=== PATIENT | male | born 1955 | race Caucasian/White ===

== ENCOUNTER → 2021-05-13 | Outpatient (CLI) | payer BC ==
[2021-05-13 17:34] LABS: African American GFR (CKD) >90 (>60 ml/min/1.73 sqM); Anion Gap 9 mmol/L; Blood Urea Nitrogen 18 mg/dL (9-20); Calcium 9.3 mg/dL (8.4-10.2); Carbon Dioxide 28 mmol/L (22-30); Chloride 98 mmol/L (98-107); Glucose 92 mg/dL (74-99); Non-African American GFR(CKD) >90 (>60 ml/min/1.73 sqM); Potassium 4.6 mmol/L (3.5-5.1); Sodium 135 mmol/L (137-145)
[2021-05-14] LABS: HCT 46.8 % (39.6-50.0); HGB 15.3 g/dL (13.0-17.0); MCH 30.7 pg (27.0-32.0); MCHC 32.7 g/dL (32.0-37.0); Mean Platelet Volume 11.1 fL (9.5-12.2); Platelet Count 250 X 10*3/uL (140-440); RBC 4.98 X 10*6/uL (4.40-5.60); RDW 11.9 % (11.5-14.5); WBC 7.74 X 10*3/uL (4.50-10.00)
== END | disposition home or self-care (01) ==
LOC: LABWHC1 15:49
PROVIDERS: ATTEND Internal Medicine Cardiovascular Disease
DX: R07.2 Precordial pain (principal); R00.2 Palpitations
CPT/HCPCS: 36415; 80048; 84443; 85027

== ENCOUNTER 2022-09-20 04:46 | Emergency (ER) | payer MEDICARE, BC ==
[2022-09-20] MEDS ORDERED: SODIUM CHLORIDE 0.9% 1,000 ML IV STA (05:14)
[2022-09-20] MEDS ORDERED: HYDROcodone/APAP 5-325MG 1 EACH TAB PO STA (05:14)
--- NOTE | 2022-09-20 05:19 | ED ---
General Adult HPI - General Source: patient Mode of arrival: ambulatory <Bladimir Senior - Last Filed: 09/20/22 08:04> <Misbah Harkins - Last Filed: 09/20/22 08:58> - General Chief complaint: Back Pain/Injury Stated complaint: upper back pain Time Seen by Provider: 09/20/22 04:59 - History of Present Illness Initial comments: Dictation was produced using [employer] dictation software. please excuse any grammatical, word or spelling errors. Chief Complaint: 67-year-old male presents with pleuritic upper back pain History of Present Illness: Patient 67-year-old male who has past medical history of 49 mm thoracic ascending aortic aneurysm resents to the ER for pleuritic back pain. States that 2 days ago symptoms began as left scapular pain. Started insidiously radiated into his bilateral soft tissues of the neck. Patient states he has next if Ms. worse with head rotation. Today his symptoms radiated to the right scapula. Symptoms are worse when he takes a deep breath. Patient denies any shortness of breath. No inciting event that may have triggered his pain. States that he has a sharp pain whenever he takes a deep breath. Denies any chest pain. No numbness time to the arms or legs. The ROS documented in this emergency department record has been reviewed and confirmed by me. Those systems with pertinent positive or negative responses have been documented in the HPI. All other systems are other negative and/or noncontributory. (Bladimir Senior) - Related Data Previous Rx's Medication Instructions Recorded Cyclobenzaprine [Flexeril] 10 mg PO BID PRN 7 Days #14 tab 09/20/22 Lidocaine 5% Patch [Lidoderm 5% 1 patch TOPICAL DAILY PRN 14 Days 09/20/22 Patch] #14 patch Allergies Allergy/AdvReac Type Severity Reaction Status Date / Time No Known Allergies Allergy Verified 09/20/22 04:57 Review of Systems ROS Other: All systems not noted in ROS Statement are negative. <Bladimir Senior - Last Filed: 09/20/22 08:04> ROS Other: All systems not noted in ROS Statement are negative. <Misbah Harkins - Last Filed: 09/20/22 08:58> ROS Statement: Those systems with pertinent positive or pertinent negative responses have been documented in the HPI. Past Medical History Additional Past Medical History / Comment(s): Ascending aortic anerysm 2011 Smoking Status: Never smoker Past Alcohol Use History: Rare Past Drug Use History: None Reported <Bladimir Senior - Last Filed: 09/20/22 08:04> General Exam <Bladimir Senior - Last Filed: 09/20/22 08:04> <Misbah Harkins - Last Filed: 09/20/22 08:58> - General Exam Comments Initial Comments: PHYSICAL EXAM: General Impression: Alert and oriented x3, not in acute distress HEENT: Normocephalic atraumatic, extra-ocular movements intact, pupils equal and reactive to light bilaterally, mucous membranes moist. Cardiovascular: Heart regular rate and rhythm Chest: Able to complete full sentences, no retractions, no tachypnea Abdomen: abdomen soft, non-tender, non-distended, no organomegaly Musculoskeletal: Pulses present and equal in all extremities, no peripheral edema Motor: no focal deficits noted Neurological: CN II-XII grossly intact, no focal motor or sensory deficits noted Skin: Intact with no visualized rashes Psych: Normal affect and mood (Bladimir Senior) General: Appears in no acute distress. HEAD: Normal with no signs of head trauma. EYES: EOMI. ENT: Hearing grossly intact. RESPIRATORY: No respiratory distress. C/V: Regular rate and rhythm. Radial pulses 2+ and intact bilaterally. ABD: Abdomen is nondistended. EXT: Mild tenderness to palpation along the right trapezius muscle. Worse with active and passive movement of the right arm. SKIN: No rashes or lesions observed on exposed skin. NEURO: Alert and oriented. (Misbah Harkins) Course Vital Signs 09/20/22 09/20/22 09/20/22 04:50 06:45 07:33 Temperature 98.4 F Pulse Rate 84 65 73 Respiratory 16 16 18 Rate Blood Pressure 185/67 144/73 149/71 O2 Sat by Pulse 100 96 97 Oximetry EKG Findings - EKG Comments: EKG Findings:: My EKG interpretation: Ventricular rate 68, normal sinus rhythm, WI interval 192, QRS 15, QTC 425. No WI prolongation, no QTC prolongation, no ST or T-wave changes noted. Overall, this EKG is unremarkable <Bladimir Senior - Last Filed: 09/20/22 08:04> Medical Decision Making - Lab Data Result diagrams: 09/20/22 05:30 09/20/22 05:30 <Bladimir Senior - Last Filed: 09/20/22 08:04> - Lab Data Result diagrams: 09/20/22 05:30 09/20/22 05:30 <Misbah Harkins - Last Filed: 09/20/22 08:58> - Medical Decision Making Was pt. sent in by a medical professional or institution (, PA, MONKEY TRAINER, urgent care, hospital, or detention...) When possible be specific @ -No Did you speak to anyone other than the patient for history (EMS, parent, family, police, friend...)? What history was obtained from this source @ -No Did you review nursing and triage notes (agree or disagree)? Why? @ -I reviewed and agree with nursing and triage notes Were old charts reviewed (outside hosp., previous admission, EMS record, old EKG, old radiological studies, urgent care reports/EKG's, detention records)? Report findings @ -No old charts were reviewed Differential Diagnosis (chest pain, altered mental status, abdominal pain women, abdominal pain men, vaginal bleeding, musculoskeletal, weakness, fever, dyspnea, syncope, headache, dizziness, GI bleed, back pain, seizure, CVA, palpatations, mental health)? @ -Differential Chest Pain: Stable Angina, Unstable Angina, STEMI, NSTEMI Aortic Dissection, Pneumothorax, Musculoskeletal, Esophageal Spasm GERD, Cholecystitis, Pancreatitis, Zoster, this is not meant to be an all-inclusive list. EKG interpreted by me (3pts min.). @ -None done X-rays interpreted by me (1pt min.). @ -Chest x-ray shows no acute processes. CT interpreted by me (1pt min.). @ -Stable thoracic aneurysm. No evidence for dissection or pulmonary embolism U/S interpreted by me (1pt. min.). @ -None done What testing was considered but not performed or refused? (CT, X-rays, U/S, labs)? Why? @ -None What meds were considered but not given or refused? Why? @ -None Did you discuss the management of the patient with other professionals (professionals i.e. , PA, MONKEY TRAINER, lab, RT, psych nurse, criminal justice social worker, pocket assembler, teacher, division officer weapons department, gearcase assembler)? Give summary @ -No Was smoking cessation discussed for >3mins.? @ -No Was critical care preformed (if so, how long)? @ -No Were there social determinants of health that impacted care today? How? (Homelessness, low income, unemployed, alcoholism, drug addiction, transportation, low edu. Level, literacy, decrease access to med. care, penitentiary, rehab)? @ -No Was there de-escalation of care discussed even if they declined (Discuss DNR or withdrawal of care, Hospice)? DNR status @ -No What co-morbidities impacted this encounter? (DM, HTN, Smoking, COPD, CAD, Cancer, CVA, ARF, Chemo, Hep., AIDS, mental health diagnosis, sleep apnea, morbid obesity)? @ -None Was patient admitted / discharged? Hospital course, mention meds given and route, prescriptions, significant lab abnormalities, going to OR and other pert inent info. @ -67-year-old male with history of descending thoracic aortic aneurysm presents emergency primary for mid scapular pleuritic pain. Symptomatology suspicious for musculoskeletal issue however he does have risk factors for more serious etiology. Laboratory evaluation obtained. CBC unremarkable. Metabolic panel is negative. Coag panel sent. D-dimer slightly elevated 0.86. Undiagnosed new problem with uncertain prognosis? @ -No Drug Therapy requiring intensive monitoring for toxicity (Heparin, Nitro, Ins ulin, Cardizem)? @ -No Were any procedures done? @ -No Diagnosis/symptom? Acute, or Chronic, or Acute on Chronic? Uncomplicated (without systemic symptoms) or Complicated (systemic symptoms)? @ -1. Pleuritic back pain Side effects of treatment? @ -No Exacerbation, Progression, or Severe Exacerbation? @ -No Poses a threat to life or bodily function? How? (Chest pain, [place], [place], pneumonia, PE, COPD, DKA, ARF, appy, cholecystitis, CVA, Diverticulitis, Homicidal, Suicidal, threat to staff... and all critical care pts) @ -yes Patient care signed out to Dr. Harkins at 8:00 AM (Bladimir Senior) Patient signed out to me pending results of CT imaging as well as troponin. Presents with what appears to be musculoskeletal type back pain. Hurts with movement of the right arm as well as right neck and torso. No numbness. No anterior chest pain. No other acute complaints at this time. Does have a history of an ascending thoracic aneurysm which is why presents for evaluation today. Pain is been ongoing for multiple days. Workup thus far was unremarkable. D-dimer was mildly elevated to 0.86. CT angiogram was ordered to evaluate the aneurysm as well as for PE. Troponin is undetectable. CTA is interpreted by me shows an ascending thoracic aneurysm of 5 cm, and per patient the most recent imaging he had done showed a stable thoracic aneurysm of 4.9 cm. It appears overall stable and unchanged. No evidence of dissection. On reevaluation, patient is feeling improved. We did discuss his workup. We agreed, me, patient as well as his that the patient is stable for discharge home and he will follow with Dr. Pillai this week. Strong suspicion this is mostly skeletal pain. We discussed that his aneurysm appears stable and he has no evidence of vomiting embolism at this time. Strict return precautions discussed. He was in agreement this plan. He'll be given a lidocaine patch as well as Flexeril as well as a starter pack for Tylenol 3. I will provide the patient with a prescription for Flexeril, lidocaine patch. I instructed the patient to follow up with their PCP in the next 1-3 days. I explained that the patient should return to the emergency department if they experience any worsening symptoms. Strict return precautions were discussed with the patient. The patient expressed understanding of these instructions. I answered all questions that the patient had. The patient was discharged home in good condition with their prescriptions and follow up information. (Misbah Harkins) - Lab Data Lab Results 09/20/22 09/20/22 09/20/22 Range/Units 05:30 05:30 05:30 WBC 10.4 (3.8-10.6) k/uL RBC 4.95 (4.30-5.90) m/uL Hgb 15.2 (13.0-17.5) gm/dL Hct 45.5 (39.0-53.0) % MCV 91.9 (80.0-100.0) fL MCH 30.6 (25.0-35.0) pg MCHC 33.3 (31.0-37.0) g/dL RDW 12.4 (11.5-15.5) % Plt Count 185 (150-450) k/uL MPV 9.1 Neutrophils % 80 % Lymphocytes % 13 % Monocytes % 5 % Eosinophils % 1 % Basophils % 0 % Neutrophils # 8.4 H (1.3-7.7) k/uL Lymphocytes # 1.4 (1.0-4.8) k/uL Monocytes # 0.5 (0-1.0) k/uL Eosinophils # 0.1 (0-0.7) k/uL Basophils # 0.0 (0-0.2) k/uL PT 10.1 (9.0-12.0) sec INR 0.9 (<1.2) APTT 22.5 (22.0-30.0) sec D-Dimer 0.86 H (<0.60) mg/L FEU Sodium 137 (137-145) mmol/L Potassium 4.3 (3.5-5.1) mmol/L Chloride 101 (98-107) mmol/L Carbon Dioxide 28 (22-30) mmol/L Anion Gap 8 mmol/L BUN 16 (9-20) mg/dL Creatinine 0.71 (0.66-1.25) mg/dL Est GFR (CKD-EPI)AfAm >90 (>60 ml/min/1.73 sqM) Est GFR (CKD-EPI)NonAf >90 (>60 ml/min/1.73 sqM) Glucose 112 H (74-99) mg/dL Calcium 8.8 (8.4-10.2) mg/dL Total Bilirubin 0.5 (0.2-1.3) mg/dL AST 28 (17-59) U/L ALT 23 (4-49) U/L Alkaline Phosphatase 66 (38-126) U/L Troponin I (0.000-0.034) ng/mL Total Protein 7.2 (6.3-8.2) g/dL Albumin 4.2 (3.5-5.0) g/dL 09/20/22 Range/Units 07:38 WBC (3.8-10.6) k/uL RBC (4.30-5.90) m/uL Hgb (13.0-17.5) gm/dL Hct (39.0-53.0) % MCV (80.0-100.0) fL MCH (25.0-35.0) pg MCHC (31.0-37.0) g/dL RDW (11.5-15.5) % Plt Count (150-450) k/uL MPV Neutrophils % % Lymphocytes % % Monocytes % % Eosinophils % % Basophils % % Neutrophils # (1.3-7.7) k/uL Lymphocytes # (1.0-4.8) k/uL Monocytes # (0-1.0) k/uL Eosinophils # (0-0.7) k/uL Basophils # (0-0.2) k/uL PT (9.0-12.0) sec INR (<1.2) APTT (22.0-30.0) sec D-Dimer (<0.60) mg/L FEU Sodium (137-145) mmol/L Potassium (3.5-5.1) mmol/L Chloride (98-107) mmol/L Carbon Dioxide (22-30) mmol/L Anion Gap mmol/L BUN (9-20) mg/dL Creatinine (0.66-1.25) mg/dL Est GFR (CKD-EPI)AfAm (>60 ml/min/1.73 sqM) Est GFR (CKD-EPI)NonAf (>60 ml/min/1.73 sqM) Glucose (74-99) mg/dL Calcium (8.4-10.2) mg/dL Total Bilirubin (0.2-1.3) mg/dL AST (17-59) U/L ALT (4-49) U/L Alkaline Phosphatase (38-126) U/L Troponin I <0.012 (0.000-0.034) ng/mL Total Protein (6.3-8.2) g/dL Albumin (3.5-5.0) g/dL Disposition <Bladimir Senior - Last Filed: 09/20/22 08:04> Is patient prescribed a controlled substance at d/c from ED?: No Time of Disposition: 08:40 <Misbah Harkins - Last Filed: 09/20/22 08:58> Clinical Impression: Musculoskeletal back pain Disposition: HOME SELF-CARE Condition: Good Instructions (If sedation given, give patient instructions): Back Pain (ED) Prescriptions: Cyclobenzaprine [Flexeril] 10 mg PO BID PRN 7 Days #14 tab PRN Reason: Pain Lidocaine 5% Patch [Lidoderm 5% Patch] 1 patch TOPICAL DAILY PRN 14 Days #14 patch PRN Reason: Pain Referrals: Mal Pillai DO [Primary Care Provider] - 1-2 days
--- NOTE | 2022-09-20 06:02 | XR ---
EXAMINATION TYPE: XR chest 2V DATE OF EXAM: 09/20/2022 COMPARISON: NONE HISTORY: Chest and pleuritic back pain. TECHNIQUE: Frontal and lateral views of the chest are obtained. FINDINGS: Overlying sternal wires are present. Low lung volumes are present. There is no suspicious focal air space opacity, pleural effusion, or pneumothorax seen. The cardiac silhouette size is with in normal limits. The osseous structures are intact. IMPRESSION: No acute cardiopulmonary process.
[2022-09-20 06:03] LABS: Basophils % (A) 0 %; Eosinophils # (A) 0.1 k/uL (0-0.7); Eosinophils % (A) 1 %; HCT 45.5 % (39.0-53.0); HGB 15.2 gm/dL (13.0-17.5); Lymphocytes # (A) 1.4 k/uL (1.0-4.8); Lymphocytes % (A) 13 %; MCH 30.6 pg (25.0-35.0); MCHC 33.3 g/dL (31.0-37.0); MCV 91.9 fL (80.0-100.0); Mean Platelet Volume 9.1; Monocytes # (A) 0.5 k/uL (0-1.0); Monocytes % (A) 5 %; Neutrophils # (A) 8.4 k/uL (1.3-7.7); Neutrophils % (A) 80 %; Platelet Count 185 k/uL (150-450); RBC 4.95 m/uL (4.30-5.90); RDW 12.4 % (11.5-15.5); WBC 10.4 k/uL (3.8-10.6)
[2022-09-20 06:12] LABS: ALT 23 U/L (4-49); AST 28 U/L (17-59); African American GFR (CKD) >90 (>60 ml/min/1.73 sqM); Albumin 4.2 g/dL (3.5-5.0); Alkaline Phosphatase 66 U/L (38-126); Anion Gap 8 mmol/L; Blood Urea Nitrogen 16 mg/dL (9-20); Calcium 8.8 mg/dL (8.4-10.2); Carbon Dioxide 28 mmol/L (22-30); Chloride 101 mmol/L (98-107); Glucose 112 mg/dL (74-99); Non-African American GFR(CKD) >90 (>60 ml/min/1.73 sqM); Potassium 4.3 mmol/L (3.5-5.1); Sodium 137 mmol/L (137-145); Total Bilirubin 0.5 mg/dL (0.2-1.3); Total Protein 7.2 g/dL (6.3-8.2)
[2022-09-20] MEDS ORDERED: MORPHINE SULFATE 2 MG/ML SYRINGE IV STA (06:48)
[2022-09-20 06:51] LABS: INR 0.9 (<1.2); Partial Thromboplastin Time 22.5 sec (22.0-30.0); Prothrombin Time 10.1 sec (9.0-12.0)
[2022-09-20 07:35] VITALS: RESP 18
--- NOTE | 2022-09-20 08:17 | CT ---
EXAMINATION TYPE: CT angio chest DATE OF EXAM: 09/20/2022 COMPARISON: Radiograph same day HISTORY: 67-year-old male Back pain, elevated d-dimer, thoracic aortic aneurysm PE vs. Dissection TECHNIQUE: Contiguous axial scanning of the chest performed without and with IV Contrast, patient inj ected with 100, wasted 23 mL of Isovue 370. Coronal/sagittal MIP reconstructions performed. 3-D recon structions generated on a dedicated independent workstation. CT DLP: 892.1 mGycm Automated exposure control for dose reduction was used. FINDINGS: Median sternotomy wires are present. Possible previous aortic annuloplasty change versus aortic valve calcifications. Heart normal size without pericardial effusion. There is aneurysm of the ascending aorta up to 5.0 cm. Conventional arch vessel branching anatomy. Mild ectasia upper descending thoracic aorta 3.0 cm. No evidence for acute intracranial hematoma or aortic dissection. No thoracic lymph adenopathy by CT size criteria. Satisfactory opacification of the pulmonary arterial system. No evidence for pulmonary embolus. Evaluation of the lungs show some stranding atelectasis of the inferior lingula without consolidation or pleural effusion. Tiny hiatal hernia. Otherwise, visualized upper abdomen shows no gross abnormal body. Bones: Moderate degenerative disc disease mid and lower thoracic spine. IMPRESSION: 1. NO EVIDENCE FOR PULMONARY EMBOLUS. 2. ANEURYSM OF THE ASCENDING AORTA UP TO 5.0 CM. 3. PREVIOUS MEDIAN STERNOTOMY. QUERY EITHER PREVIOUS AORTIC ANNULOPLASTY VERSUS AORTIC VALVE CALCIFIC ATIONS.
[2022-09-20] MEDS ORDERED: LIDOCAINE 5% PATCH TOPICAL STA (08:45)
[2022-09-20] MEDS ORDERED: ACET/COD 300 MG/30 MG STARTER PACK 6 TAB BTL PO STA (08:45)
[2022-09-20] MEDS ORDERED: CYCLOBENZAPRINE 10 MG TAB PO STA (08:46)
[2022-09-20 09:23] VITALS: BP 138/70; PULSE 71; TEMP 98.1
== END 2022-09-20 09:27 | disposition home or self-care (01) ==
LOC: EC 04:46
DX: M54.9 Dorsalgia, unspecified (principal); I71.21 Aneurysm of the ascending aorta, without rupture
CPT/HCPCS: 36415; 93005; 85379; 80053; 84484; 85025; 85610; 85730; 71046; 71275; 99284; 96360; 96361 ×3; Q9967